=== PATIENT | female | born 1960 | race Caucasian/White ===

== ENCOUNTER → 2017-01-09 | Day surgery (SDC) | payer BC ==
[~2017-01-09] VITALS: Ht 167.6 cm; Wt 59.7 kg
[~2017-01-09] MED LIST: ASPIRIN325 MG PO; CLARITIN10 MG PO; CRANBERRY CONC1 EACH PO; L-LYSINE600 MG PO; PROBIOTIC1 EAC1 PO; TYLENOL EXTRA500 MG PO; TYLENOL WITH C1 EACH PO; VITAMIN D2000 UNIT PO
--- NOTE | ~2017-01-09 | OR ---
PATIENT'S NAME: OLIVIER LAM [facility] AGE: 56 Y [address] ROOM: [place] [address] LOCATION: [facility] ADMIT DATE: 01/09/2017 OR/Procedure Report DISCHARGE DATE: FAMILY PHYSICIAN: Dolores Graff MD ATTENDING PHYSICIAN: XIOMY SALMON SURGEON: Xiomy Salmon MD DIESEL MECHANIC CONSTRUCTION: Varghese Castro PA-C. DATE OF PROCEDURE: 01/09/2017 PREOPERATIVE DIAGNOSIS: Right displaced fifth metatarsal Martinez fracture. POSTOPERATIVE DIAGNOSIS: Right displaced fifth metatarsal Martinez fracture. PROCEDURES PERFORMED: 1. Open reduction and internal fixation of right fifth metatarsal fracture. 2. Use of intraoperative fluoroscopy, less than 1 hour. 3. Placement of short-leg splint intraoperatively. ANESTHESIA: Sedation with peripheral nerve block. ESTIMATED BLOOD LOSS: Minimal. FLUIDS: See anesthesia report. TOURNIQUET: Right ankle Esmarch. SPECIMEN: None. COMPLICATIONS: None. DISPOSITION: Stable in PACU. COUNTS: All counts were correct. IMPLANTS: Lamoni 5 mm partially threaded solid titanium screw for fixation of right fifth metatarsal Martinez fracture. Size 44 mm in length. INDICATIONS: Ms. Lam underwent the noted procedures above. The risks, benefits, and alternatives of pursuing surgical intervention were discussed the patient in detail, and she elected proceed with surgery. Anesthesia team was consulted for their perioperative evaluation of the patient. I marked the patient's right lower extremity indicating the correct surgical site. DESCRIPTION OF PROCEDURE: The patient was taken from the holding area of the operating room. A time-out was performed. Sedation was administered. PATIENT'S NAME: OLIVIER LAM [facility] AGE: 56 Y [address] ROOM: [place] [address] LOCATION: [facility] ADMIT DATE: 01/09/2017 OR/Procedure Report DISCHARGE DATE: FAMILY PHYSICIAN: Dolores Graff MD ATTENDING PHYSICIAN: XIOMY SALMON Perioperative antibiotics were also administered. The patient has placed supine on the operating room table with a bump under the hip and bone foam under the leg. The right lower extremity was then prepped and draped in a sterile fashion. A time-out was performed. An Esmarch was used to exsanguinate the foot and a Esmarch was placed over 4-inch Webril at the level of the ankle. I then introduced intraoperative fluoroscopy. I identified fifth metatarsal tuberosity. There was displacement of the fracture site. Using a starting guidewire, I identified the tip of the fifth metatarsal tuberosity. Using a drill, I inserted the K-wire into a "high and inside starting point." I identified the position of the pin fluoroscopically. I then made a surgical incision to skin and subcutaneous tissue and retracted the peroneal tendons out of the way. I subsequently used my opening reamer to access the fifth metatarsal intramedullary canal. I then tapped up to a size 5 mm screw. I measured the length of my pin. I then subsequently inserted my screw. I achieved good compression at the fracture site. I was fluoroscopically able to identify that the fracture gap closed with advancement of the screw. I achieved solid fixation of the screw and compression across the fracture site. This was confirmed fluoroscopically and the images were saved. I injected a local anesthetic at the surgical site for postoperative anesthetic purposes. The wound was then irrigated with a normal sterile saline solution and closed using a 3-0 Vicryl suture to approximate the subcutaneous tissue followed by perennial to close the skin. After this dried, the patient was then placed into a well-padded short-leg splint on the right lower extremity with the ankle in neutral dorsiflexion. The ankle Esmarch tourniquet was let down prior to placement of the splint. The patient was then transferred from the operating room table onto the stretcher and brought to recovery room in stable condition. There were no intraoperative complications noted. Of note, my PA, Varghese Castro PA-C, played an integral role in the intraoperative care of this patient. This included preoperative positioning, intraoperative expert retraction, and closing and splinting functions. IMPRESSION: The patient is status post the noted procedures above. PLAN: The patient will be nonweightbearing on the right lower extremity in a splint. She will be encouraged to rest, ice, and elevate the foot going forward. Postoperative pain control in form of Percocet and aspirin for DVT prophylaxis. She will be discharged home from the PACU provided she meets PATIENT'S NAME: OLIVIER LAM [facility] AGE: 56 Y [address] ROOM: [place], [place] [address] LOCATION: [facility] ADMIT DATE: 01/09/2017 OR/Procedure Report DISCHARGE DATE: FAMILY PHYSICIAN: Dolores Graff MD ATTENDING PHYSICIAN: XIOMY SALMON PACU discharge criteria. She will follow up with me in the office in 2 weeks for first postoperative visit. MD JANNIE ANDERSON/joanne /[id number] d: 01/09/17 1412 t: 01/10/17 1040, OPERATIVE SUMMARY
== END | disposition disaster alternative care site (69) ==
LOC: GPOC 01-08 09:00
PROC: 0QSN04Z Reposition Right Metatarsal with Internal Fixation Device, Open Approach (ICD-10-PCS; principal; 2017-01-09)
DX: S92.351A Displaced fracture of fifth metatarsal bone, right foot, initial encounter for closed fracture (principal); X50.1XXA Overexertion from prolonged static or awkward postures, initial encounter; Z98.890 Other specified postprocedural states
CPT/HCPCS: C1713; J0690; J2250; J2405; J7120

== ENCOUNTER → 2017-03-01 | Outpatient (CLI) | payer BC | END | disposition disaster alternative care site (69) | LOC: GBCOE 06:59 | DX: Z12.31 Encounter for screening mammogram for malignant neoplasm of breast (principal); Z91.89 Other specified personal risk factors, not elsewhere classified | CPT/HCPCS: G0202 ==

== ENCOUNTER → 2017-04-02 | Outpatient (CLI) | payer BC | END | disposition disaster alternative care site (69) | LOC: GBCOE 13:48 | DX: Z13.820 Encounter for screening for osteoporosis (principal); M85.89 Other specified disorders of bone density and structure, multiple sites ==